=== PATIENT | female | born 1995 ===

== ENCOUNTER 2020-04-14 06:56 | Inpatient (IN) | payer BC ==
[2020-04-14] MEDS ORDERED: Sodium Chloride 0.9% 10 ML Syringe FLUSH PRN (08:00)
[2020-04-14] MEDS ORDERED: Lidocaine 1% 50 ML MDV INJECT PRN (08:00)
[2020-04-14] MEDS ORDERED: Lactated Ringers 1,000 ML IV SCH ×2 (08:00→13:00)
[2020-04-14] MEDS ORDERED: Sodium Chloride 0.9% 10 ML SDV IV PRN (08:00)
[2020-04-14] MEDS ORDERED: Sodium Chloride 0.9% 2.5 ML Syringe FLUSH PRN (08:00)
[2020-04-14] MEDS ORDERED: Citric Acid/Sodium Citrate Solution 30 ML Cup PO ONE (09:42)
[2020-04-14] MEDS ORDERED: Oxytocin/0.9 % Sodium Chloride 30 UNIT/500 ML BAG IV SCH (09:45)
[2020-04-14] MEDS ORDERED: Morphine PF 10 MG/10 ML SDV ONE (10:03)
[2020-04-14] MEDS ORDERED: Octyl 2-Cyanoacrylate 1 Tube ONE (10:04)
[2020-04-14] MEDS ORDERED: Phenylephrine 1% 10 MG/ML SDV ONE (10:09)
[2020-04-14] MEDS ORDERED: Oxytocin 10 Units/1 ML SDV ONE (10:09)
[2020-04-14] MEDS ORDERED: Clindamycin Phosphate in D5W 900 MG in Premix Bag 1 BAG IV ONE ×2 (12:57)
[2020-04-14] MEDS ORDERED: Oxytocin 10 Units/1 ML SDV IM PRN (12:58)
[2020-04-14] MEDS ORDERED: Lanolin 100% Cream 7 GM Tube TOP PRN (12:58)
[2020-04-14] MEDS ORDERED: diphenhydrAMINE 50 MG/ML SDV IVPUSH PRN (12:58)
[2020-04-14] MEDS ORDERED: Acetaminophen/oxyCODONE 325-5 MG Tab PO PRN (12:58)
[2020-04-14] MEDS ORDERED: Tranexamic Acid 1,000 MG in Sodium Chloride 0.9% 100 ML IV PRN (12:58)
[2020-04-14] MEDS ORDERED: Ondansetron 4 MG/2 ML SDV IVPUSH PRN (12:58)
[2020-04-14] MEDS ORDERED: Ibuprofen 800 MG Tab PO PRN (12:58)
[2020-04-14] MEDS ORDERED: Bisacodyl 10 MG Supp RECTAL PRN (12:58)
[2020-04-14] MEDS ORDERED: ePHEDrine 50 MG/ML SDV ONE (13:00)
[2020-04-14] MEDS ORDERED: Sodium Chloride 0.9% 20 ML ONE (13:00)
--- NOTE | 2020-04-14 13:18 | PCM.OPNOTE ---
- General Post-Op/Procedure Note Date of Surgery/Procedure: 04/14/20 Operative Procedure(s): Repeat LTCS. Cystotomy repair Findings: Viable female APGARs 8, 8 weight 8 lb 6 oz. Meconium stained amiotic fluid Significant uterovesicle adhesions to fundus of uterus; during adhesiolysis--cystotomy occurred in anterior dome of bladder. Pre Op Diagnosis: 39 week IUP. Early labor. Previous c section, desires repeat Post-Op Diagnosis: Same Anesthesia Technique: Spinal Primary Surgeon: Marj Quinones Senior Net Programmer: Farideh Lambert Fluid Replacement, Intraop: 1,800 EBL in mLs: 500 Complications: cystotomy -repaired Condition: Stable Free Text/Narrative:: Dictation [id number]
--- NOTE | 2020-04-14 14:30 | PCM.POSTAN ---
POST ANESTHESIA ASSESSMENT - MENTAL STATUS Mental Status: Alert, Oriented - RESPIRATORY Respiratory Status: Respiratory Rate WNL, Airway Patent, O2 Saturation Stable - CARDIOVASCULAR CV Status: Pulse Rate WNL, Blood Pressure Stable - GASTROINTESTINAL GI Status: No Symptoms - PAIN Pain Score: 3 - POST OP HYDRATION Hydration Status: Adequate & Stable - OBSERVATIONS Free Text/Narrative:: no anesthesia issues
[2020-04-14] MEDS: Ketorolac 30 MG/ML SDV IVPUSH SCH (20:15)
[2020-04-14] MEDS: Docusate Sodium 100 MG Cap PO SCH (21:20)
[2020-04-14] MEDS: Nitrofurantoin Monohydrate/Macrocrystalline 100 MG Cap PO SCH (21:20)
[2020-04-14] MEDS: Simethicone 80 MG Tab.Chew PO SCH (21:21)
[2020-04-15] MEDS: Simethicone 80 MG Tab.Chew PO SCH ×4 (00:30→18:04)
[2020-04-15] MEDS: Ketorolac 30 MG/ML SDV IVPUSH SCH ×4 (02:50→20:24)
[2020-04-15 05:43] LABS: BLOOD UREA NITROGEN,BUN 8 mg/dL (7.0-18.0); CARBON DIOXIDE,CO2 26.7 mmol/L (21.0-32.0); CHLORIDE,CL 101 mmol/L (98-107); GLUCOSE RANDOM 94 mg/dL (74-106); POTASSIUM,K 4.1 mmol/L (3.5-5.1); SODIUM,NA 134 mmol/L (136-145)
--- NOTE | 2020-04-15 06:07 | PCM.SURGPN ---
<Farideh Lambert - Last Filed: 04/15/20 06:10> - General Info Date of Service: 04/15/20 Date of Surgery/Procedure: 04/14/20 POD#: 1 Post-Op Diagnosis: H/o previous desiring repeat - delivered Functional Status: Reports: Pain Controlled - Review of Systems General: Reports: No Symptoms HEENT: Reports: No Symptoms Pulmonary: Reports: No Symptoms Cardiovascular: Reports: No Symptoms Gastrointestinal: Reports: No Symptoms Genitourinary: Reports: No Symptoms Musculoskeletal: Reports: No Symptoms Skin: Reports: No Symptoms Neurological: Reports: No Symptoms Psychiatric: Reports: No Symptoms - Patient Data Vitals - Most Recent: Last Vital Signs Temp 97.7 F 04/15/20 05:25 Pulse 88 04/15/20 05:25 Resp 17 04/15/20 05:25 BP 108/60 04/15/20 05:25 Pulse Ox 100 04/15/20 05:25 Weight - Most Recent: 83.007 kg I&O - Last 24 Hours: Intake & Output 04/14/20 04/14/20 04/15/20 14:59 22:59 06:59 Intake Total 1800 700 500 Output Total 980 265 Balance 1800 -280 235 Lab Results Last 24 Hrs: Laboratory Results - last 24 hr 04/14/20 04/14/20 04/14/20 Range/Units 08:32 08:36 09:32 WBC 16.14 H (4.0-11.0) K/uL RBC 4.60 (4.30-5.90) M/uL Hgb 14.1 (12.0-16.0) g/dL Hct 42.2 (36.0-46.0) % MCV 91.7 (80.0-98.0) fL MCH 30.7 (27.0-32.0) pg MCHC 33.4 (31.0-37.0) g/dL RDW Std Deviation 43.7 (28.0-62.0) fl RDW Coeff of [place] 13 (11.0-15.0) % Plt Count 139 L (150-400) K/uL MPV 11.50 (7.40-12.00) fL Nucleated RBC % 0.0 /100WBC Nucleated RBCs # 0 K/uL Sodium (136-145) mmol/L Potassium (3.5-5.1) mmol/L Chloride (98-107) mmol/L Carbon Dioxide (21.0-32.0) mmol/L BUN (7.0-18.0) mg/dL Creatinine (0.6-1.0) mg/dL Est Cr Clr Drug Dosing mL/min Estimated GFR (MDRD) ml/min Glucose (74-106) mg/dL Calcium (8.5-10.1) mg/dL SARS-CoV-2 RNA (ALYSON) POSITIVE H (NEGATIVE) Blood Type B POSITIVE Antibody Screen NEGATIVE 04/15/20 04/15/20 Range/Units 05:11 05:11 WBC 15.66 H (4.0-11.0) K/uL RBC 3.76 L (4.30-5.90) M/uL Hgb 11.5 L (12.0-16.0) g/dL Hct 34.5 L (36.0-46.0) % MCV 91.8 (80.0-98.0) fL MCH 30.6 (27.0-32.0) pg MCHC 33.3 (31.0-37.0) g/dL RDW Std Deviation 44.2 (28.0-62.0) fl RDW Coeff of [place] 13 (11.0-15.0) % Plt Count 140 L (150-400) K/uL MPV 10.80 (7.40-12.00) fL Nucleated RBC % 0.0 /100WBC Nucleated RBCs # 0 K/uL Sodium 134 L (136-145) mmol/L Potassium 4.1 (3.5-5.1) mmol/L Chloride 101 (98-107) mmol/L Carbon Dioxide 26.7 (21.0-32.0) mmol/L BUN 8 (7.0-18.0) mg/dL Creatinine 0.7 (0.6-1.0) mg/dL Est Cr Clr Drug Dosing 119.47 mL/min Estimated GFR (MDRD) > 60.0 ml/min Glucose 94 (74-106) mg/dL Calcium 8.2 L (8.5-10.1) mg/dL SARS-CoV-2 RNA (ALYSON) (NEGATIVE) Blood Type Antibody Screen Med Orders - Current: Current Medications Bisacodyl (Dulcolax) 10 mg RECTAL ONETIME PRN PRN Reason: Constipation Diphenhydramine HCl (Benadryl) 25 mg IVPUSH Q6H PRN PRN Reason: Itching or Nausea Docusate Sodium (Colace) 100 mg PO BID [facility] Last Admin: 04/14/20 21:20 Dose: 100 mg Documented by: Emollient Ointment (Lansinoh Hpa) 0 gm TOP ASDIRECTED PRN PRN Reason: Sore Nipples Lactated Ringer's (Ringers, Lactated) 1,000 mls @ 150 mls/hr IV ASDIRECTED [facility] Last Admin: 04/14/20 08:35 Dose: 150 mls/hr Documented by: Oxytocin/Sodium Chloride (Oxytocin 30 Unit/500 Ml-Ns) 30 unit in 500 mls @ 250 mls/hr IV TITRATE [facility] Lactated Ringer's (Ringers, Lactated) 1,000 mls @ 125 mls/hr IV ASDIRECTED [facility] Tranexamic Acid 1,000 mg/ (Sodium Chloride) 110 mls @ 660 mls/hr IV ONETIME PRN PRN Reason: Bleeding Ibuprofen (Motrin) 800 mg PO Q8H PRN PRN Reason: mild pain or fever Ketorolac Tromethamine (Toradol) 30 mg IVPUSH Q6H [facility] Stop: 04/15/20 13:01 Last Admin: 04/15/20 02:50 Dose: 30 mg Documented by: Lidocaine HCl (Xylocaine 1%) 50 ml INJECT ONETIME PRN PRN Reason: Laceration repair Nitrofurantoin Macrocrystals (Macrobid) 100 mg PO BID [facility] Last Admin: 04/14/20 21:20 Dose: 100 mg Documented by: Ondansetron HCl (Zofran) 4 mg IVPUSH Q4H PRN PRN Reason: Nausea/Vomiting Oxycodone/Acetaminophen (Percocet 325-5 Mg) 1 tab PO Q4H PRN PRN Reason: Pain (moderate 4-6) Oxycodone/Acetaminophen (Percocet 325-5 Mg) 2 tab PO Q4H PRN PRN Reason: Pain (moderate 4-6) Oxytocin (Pitocin) 10 unit IM ASDIRECTED PRN PRN Reason: Excessive Vaginal Bleeding Simethicone (Simethicone) 160 mg PO QID [facility] Last Admin: 04/15/20 05:32 Dose: 160 mg Documented by: Sodium Chloride (Saline Flush) 10 ml FLUSH ASDIRECTED PRN PRN Reason: Keep Vein Open Sodium Chloride (Saline Flush) 2.5 ml FLUSH ASDIRECTED PRN PRN Reason: Keep Vein Open Sodium Chloride (Normal Saline) 10 ml IV ASDIRECTED PRN PRN Reason: IV Use Discontinued Medications Citric Acid/Sodium Citrate (Bicitra Solution) 30 ml PO ONETIME ONE Stop: 04/14/20 09:43 Ephedrine Sulfate (Ephedrine Sulfate) Confirm Administered Dose 50 mg .ROUTE .STK-MED ONE Stop: 04/14/20 13:01 Clindamycin Phosphate 900 mg/ (Premix) 50 mls @ 100 mls/hr IV ASDIRECTED ONE Stop: 04/14/20 13:26 Sodium Chloride (Normal Saline) Confirm Administered Dose 20 mls @ as directed .ROUTE .STK-MED ONE Stop: 04/14/20 13:01 Morphine Sulfate (Duramorph Pf) Confirm Administered Dose 10 mg .ROUTE .STK-MED ONE Stop: 04/14/20 10:04 Octyl Cyanoacrylate (Dermabond Advance) Confirm Administered Dose 1 applic .ROUTE .STK-MED ONE Stop: 04/14/20 10:05 Oxytocin (Pitocin) Confirm Administered Dose 20 unit .ROUTE .STK-MED ONE Stop: 04/14/20 10:10 Phenylephrine HCl (Wilmer-Synephrine) Confirm Administered Dose 10 mg .ROUTE .STK- MED ONE Stop: 04/14/20 10:10 - Exam Wound/Incisions: Healing Well, Dressing Dry and Intact General: Alert, Oriented HEENT: Pupils Equal Neck: Supple Lungs: Clear to Auscultation, Normal Respiratory Effort Cardiovascular: Regular Rate, Regular Rhythm GI/Abdominal Exam: Soft, No Organomegaly, No Distention, No Mass, Other (appropriately tender) Extremities: Normal Inspection, Normal Range of Motion, Non-Tender, No Pedal Edema Skin: Warm, Dry, Intact Neurological: No New Focal Deficit Psy/Mental Status: Alert, Normal Affect, Normal Mood Sepsis Event Note - Evaluation Sepsis Screening Result: No Definite Risk - Focused Exam Vital Signs: Vital Signs Temp Pulse Resp BP BP Pulse Ox 04/15/20 05:25 97.7 F 88 17 108/60 100 04/15/20 02:30 89 18 99 04/15/20 01:30 91 19 97 04/15/20 00:30 91 19 97 04/14/20 23:24 97.7 F 94 17 111/61 96 04/14/20 21:00 95 17 96 04/14/20 20:00 99.1 F 91 18 107/56 L 98 - Problem List & Annotations (1) delivery delivered SNOMED Code(s): 005955042 Code(s): O82 - ENCOUNTER FOR DELIVERY WITHOUT INDICATION Status: Acute Current Visit: Yes Onset Date: ~04/14/20 - Problem List Review Problem List Initiated/Reviewed/Updated: Yes - My Orders Last 24 Hours: Active Orders 24 hr Category Date Time Status Patient Status [ADT] Routine ADT 04/14/20 07:59 Active Patient Status [ADT] Routine ADT 04/14/20 09:42 Active Patient Status [ADT] Routine ADT 04/14/20 12:58 Active Ambulate [RC] PER UNIT ROUTINE Care 04/14/20 12:58 Active Antiembolic Devices [RC] PER UNIT ROUTINE Care 04/14/20 12:59 Active Communication Order [RC] PER UNIT ROUTINE Care 04/14/20 12:58 Active Communication Order [RC] PER UNIT ROUTINE Care 04/14/20 12:58 Active Communication Order [RC] Per Unit Routine Care 04/14/20 12:58 Active Cooling Warming Measures [RC] ASDIRECTED Care 04/14/20 12:59 Active Hilton Catheter Insertion [Insert Urinary Catheter] [OM. Care 04/14/20 13:15 Ordered PC] Q24H May Shower [RC] ASDIRECTED Care 04/14/20 12:58 Active Notify Provider Intake and Out [RC] ASDIRECTED Care 04/14/20 12:58 Active Notify Provider Vital Signs [RC] ASDIRECTED Care 04/14/20 12:58 Active Notify Provider Vital Signs [RC] PRN Care 04/14/20 09:00 Active Procedure Site Prep Instruct [RC] ASDIRECTED Care 04/14/20 12:57 Active RT Incentive Spirometry [RC] Q2HWA Care 04/14/20 12:58 Active Up ad Jo-Ann [RC] ASDIRECTED Care 04/14/20 07:59 Active Up ad Jo-Ann [RC] ASDIRECTED Care 04/14/20 09:42 Active Urinary Catheter Assessment [RC] ASDIRECTED Care 04/14/20 13:05 Active Verify Patient Consent Obtain [RC] ASDIRECTED Care 04/14/20 09:42 Active Vital Signs [RC] PER UNIT ROUTINE Care 04/14/20 07:59 Active Vital Signs [RC] PER UNIT ROUTINE Care 04/14/20 09:42 Active Vital Signs [RC] PER UNIT ROUTINE Care 04/14/20 12:57 Active Vital Signs [RC] PER UNIT ROUTINE Care 04/14/20 12:58 Active Regular Diet [DIET] Diet 04/14/20 Dinner Active RPR (SYPHILIS SERO) W/ RFLX [REF] Routine Lab 04/14/20 08:32 Received Acetaminophen/oxyCODONE [Percocet 325-5 MG] Med 04/14/20 12:58 Active 1 tab PO Q4H PRN Acetaminophen/oxyCODONE [Percocet 325-5 MG] Med 04/14/20 12:58 Active 2 tab PO Q4H PRN Docusate Sodium [Colace] Med 04/14/20 21:00 Active 100 mg PO BID Ibuprofen [Motrin] Med 04/14/20 12:58 Active 800 mg PO Q8H PRN Ketorolac [Toradol] Med 04/14/20 13:00 Active 30 mg IVPUSH Q6H Lactated Ringers [Ringers, Lactated] 1,000 ml Med 04/14/20 08:00 Active IV ASDIRECTED Lactated Ringers [Ringers, Lactated] 1,000 ml Med 04/14/20 13:00 Active IV ASDIRECTED Lanolin [Lansinoh HPA] Med 04/14/20 12:58 Active See Dose Instructions TOP ASDIRECTED PRN Lidocaine 1% [Xylocaine 1%] Med 04/14/20 08:00 Active 50 ml INJECT ONETIME PRN Nitrofurantoin Sanders/Macrocryst [Macrobid] Med 04/14/20 21:00 Active 100 mg PO BID Ondansetron [Zofran] Med 04/14/20 12:58 Active 4 mg IVPUSH Q4H PRN Oxytocin [Pitocin] Med 04/14/20 12:58 Active 10 unit IM ASDIRECTED PRN Oxytocin/0.9 % Sodium Chloride [Oxytocin 30 Unit/500 ML Med 04/14/20 09:45 Active -NS] 30 unit in 500 ml IV TITRATE Simethicone Med 04/14/20 18:00 Active 160 mg PO QID Sodium Chloride 0.9% [Normal Saline] Med 04/14/20 08:00 Active 10 ml IV ASDIRECTED PRN Sodium Chloride 0.9% [Saline Flush] Med 04/14/20 08:00 Active 10 ml FLUSH ASDIRECTED PRN Sodium Chloride 0.9% [Saline Flush] Med 04/14/20 08:00 Active 2.5 ml FLUSH ASDIRECTED PRN Tranexamic Acid [Cyklokapron] 1,000 mg Med 04/14/20 12:58 Active Sodium Chloride 0.9% [Normal Saline] 100 ml IV ONETIME bisacodyL [Dulcolax] Med 04/14/20 12:58 Active 10 mg RECTAL ONETIME PRN diphenhydrAMINE [Benadryl] Med 04/14/20 12:58 Active 25 mg IVPUSH Q6H PRN Abdominal Binder [OM.PC] Routine Ot 04/14/20 12:58 Ordered Assess Lochia [WOMSER] Per Unit Routine Ot 04/14/20 12:58 Ordered Assess Uterine Involution [WOMSER] Per Unit Routine Ot 04/14/20 12:58 Ordered Breast Pump [WOMSER] Per Unit Routine Ot 04/14/20 12:58 Ordered Heat Therapy [OM.PC] Routine Ot 04/14/20 12:58 Ordered Ice Therapy [OM.PC] Routine Ot 04/14/20 12:58 Ordered Peripheral IV Discontinue [OM.PC] Routine Ot 04/14/20 12:58 Ordered Peripheral IV Insertion Adult [OM.PC] Routine Ot 04/14/20 08:01 Ordered Schedule Procedure [COMM] Per Unit Routine Ot 04/14/20 09:42 Ordered Sequential Compression Device [OM.PC] Per Unit Routine Ot 04/14/20 12:58 Ordered Resuscitation Status Routine Resus Stat 04/14/20 07:59 Ordered Medication Orders Bisacodyl (Dulcolax) 10 mg RECTAL ONETIME PRN PRN Reason: Constipation Diphenhydramine HCl (Benadryl) 25 mg IVPUSH Q6H PRN PRN Reason: Itching or Nausea Docusate Sodium (Colace) 100 mg PO BID [facility] Last Admin: 04/14/20 21:20 Dose: 100 mg Documented by: ALESSANDRO Emollient Ointment (Lansinoh Hpa) 0 gm TOP ASDIRECTED PRN PRN Reason: Sore Nipples Lactated Ringer's (Ringers, Lactated) 1,000 mls @ 150 mls/hr IV ASDIRECTED [facility] Last Admin: 04/14/20 08:35 Dose: 150 mls/hr Documented by: LILI Oxytocin/Sodium Chloride (Oxytocin 30 Unit/500 Ml-Ns) 30 unit in 500 mls @ 250 mls/hr IV TITRATE [facility] Lactated Ringer's (Ringers, Lactated) 1,000 mls @ 125 mls/hr IV ASDIRECTED [facility] Tranexamic Acid 1,000 mg/ (Sodium Chloride) 110 mls @ 660 mls/hr IV ONETIME PRN PRN Reason: Bleeding Ibuprofen (Motrin) 800 mg PO Q8H PRN PRN Reason: mild pain or fever Ketorolac Tromethamine (Toradol) 30 mg IVPUSH Q6H [facility] Stop: 04/15/20 13:01 Last Admin: 04/15/20 02:50 Dose: 30 mg Documented by: Admin: 04/14/20 20:15 Dose: 30 mg Documented by: ALESSANDRO Lidocaine HCl (Xylocaine 1%) 50 ml INJECT ONETIME PRN PRN Reason: Laceration repair Nitrofurantoin Macrocrystals (Macrobid) 100 mg PO BID [facility] Last Admin: 04/14/20 21:20 Dose: 100 mg Documented by: ALESSANDRO Ondansetron HCl (Zofran) 4 mg IVPUSH Q4H PRN PRN Reason: Nausea/Vomiting Oxycodone/Acetaminophen (Percocet 325-5 Mg) 1 tab PO Q4H PRN PRN Reason: Pain (moderate 4-6) Oxycodone/Acetaminophen (Percocet 325-5 Mg) 2 tab PO Q4H PRN PRN Reason: Pain (moderate 4-6) Oxytocin (Pitocin) 10 unit IM ASDIRECTED PRN PRN Reason: Excessive Vaginal Bleeding Simethicone (Simethicone) 160 mg PO QID [facility] Last Admin: 02/26/21 05:32 Dose: 160 mg Documented by: Admin: 04/15/20 00:30 Dose: 160 mg Documented by: Admin: 04/14/20 21:21 Dose: Not Given Documented by: ALESSANDRO Sodium Chloride (Saline Flush) 10 ml FLUSH ASDIRECTED PRN PRN Reason: Keep Vein Open Sodium Chloride (Saline Flush) 2.5 ml FLUSH ASDIRECTED PRN PRN Reason: Keep Vein Open Sodium Chloride (Normal Saline) 10 ml IV ASDIRECTED PRN PRN Reason: IV Use - Assessment Assessment (Free Text/Narrative):: 24 year old POD 1 s/p repeat LTCS and cystotomy repair with delivery of viable female apgars 8 & 8. Vitals/labs stable. Urine output normal - currently slightly red-tinged, hilton catheter in place, - Plan Plan (Free Text/Narrative):: 1. Routine pp cares - may shower today, ambulate 2. Cystotomy repair - hilton catheter in place x 7 days, macrobid 100mg BID x 7 days prophylaxis. 3. Anticipate d/c tomorrow. <Marj Quinones - Last Filed: 04/15/20 07:30> - Patient Data Vitals - Most Recent: Last Vital Signs Temp 36.5 C 04/15/20 05:25 Pulse 88 04/15/20 05:25 Resp 17 04/15/20 05:25 BP 108/60 04/15/20 05:25 Pulse Ox 100 04/15/20 05:25 I&O - Last 24 Hours: Intake & Output 04/14/20 04/15/20 04/15/20 22:59 06:59 14:59 Intake Total 700 800 Output Total 980 590 Balance -280 210 Lab Results Last 24 Hrs: Laboratory Results - last 24 hr 04/14/20 04/14/20 04/14/20 Range/Units 08:32 08:36 09:32 WBC 16.14 H (4.0-11.0) K/uL RBC 4.60 (4.30-5.90) M/uL Hgb 14.1 (12.0-16.0) g/dL Hct 42.2 (36.0-46.0) % MCV 91.7 (80.0-98.0) fL MCH 30.7 (27.0-32.0) pg MCHC 33.4 (31.0-37.0) g/dL RDW Std Deviation 43.7 (28.0-62.0) fl RDW Coeff of [place] 13 (11.0-15.0) % Plt Count 139 L (150-400) K/uL MPV 11.50 (7.40-12.00) fL Nucleated RBC % 0.0 /100WBC Nucleated RBCs # 0 K/uL Sodium (136-145) mmol/L Potassium (3.5-5.1) mmol/L Chloride (98-107) mmol/L Carbon Dioxide (21.0-32.0) mmol/L BUN (7.0-18.0) mg/dL Creatinine (0.6-1.0) mg/dL Est Cr Clr Drug Dosing mL/min Estimated GFR (MDRD) ml/min Glucose (74-106) mg/dL Calcium (8.5-10.1) mg/dL SARS-CoV-2 RNA ([place]) POSITIVE H (NEGATIVE) Blood Type B POSITIVE Antibody Screen NEGATIVE 04/15/20 04/15/20 Range/Units 05:11 05:11 WBC 15.66 H (4.0-11.0) K/uL RBC 3.76 L (4.30-5.90) M/uL Hgb 11.5 L (12.0-16.0) g/dL Hct 34.5 L (36.0-46.0) % MCV 91.8 (80.0-98.0) fL MCH 30.6 (27.0-32.0) pg MCHC 33.3 (31.0-37.0) g/dL RDW Std Deviation 44.2 (28.0-62.0) fl RDW Coeff of [place] 13 (11.0-15.0) % Plt Count 140 L (150-400) K/uL MPV 10.80 (7.40-12.00) fL Nucleated RBC % 0.0 /100WBC Nucleated RBCs # 0 K/uL Sodium 134 L (136-145) mmol/L Potassium 4.1 (3.5-5.1) mmol/L Chloride 101 (98-107) mmol/L Carbon Dioxide 26.7 (21.0-32.0) mmol/L BUN 8 (7.0-18.0) mg/dL Creatinine 0.7 (0.6-1.0) mg/dL Est Cr Clr Drug Dosing 119.47 mL/min Estimated GFR (MDRD) > 60.0 ml/min Glucose 94 (74-106) mg/dL Calcium 8.2 L (8.5-10.1) mg/dL SARS-CoV-2 RNA ([place]ON) (NEGATIVE) Blood Type Antibody Screen Med Orders - Current: Current Medications Bisacodyl (Dulcolax) 10 mg RECTAL ONETIME PRN PRN Reason: Constipation Diphenhydramine HCl (Benadryl) 25 mg IVPUSH Q6H PRN PRN Reason: Itching or Nausea Docusate Sodium (Colace) 100 mg PO BID [facility] Last Admin: 04/14/20 21:20 Dose: 100 mg Documented by: Emollient Ointment (Lansinoh Hpa) 0 gm TOP ASDIRECTED PRN PRN Reason: Sore Nipples Lactated Ringer's (Ringers, Lactated) 1,000 mls @ 150 mls/hr IV ASDIRECTED [facility] Last Admin: 04/14/20 08:35 Dose: 150 mls/hr Documented by: Oxytocin/Sodium Chloride (Oxytocin 30 Unit/500 Ml-Ns) 30 unit in 500 mls @ 250 mls/hr IV TITRATE [facility] Lactated Ringer's (Ringers, Lactated) 1,000 mls @ 125 mls/hr IV ASDIRECTED [facility] Tranexamic Acid 1,000 mg/ (Sodium Chloride) 110 mls @ 660 mls/hr IV ONETIME PRN PRN Reason: Bleeding Ibuprofen (Motrin) 800 mg PO Q8H PRN PRN Reason: mild pain or fever Ketorolac Tromethamine (Toradol) 30 mg IVPUSH Q6H [facility] Stop: 04/15/20 13:01 Last Admin: 04/15/20 02:50 Dose: 30 mg Documented by: Lidocaine HCl (Xylocaine 1%) 50 ml INJECT ONETIME PRN PRN Reason: Laceration repair Nitrofurantoin Macrocrystals (Macrobid) 100 mg PO BID [facility] Last Admin: 04/14/20 21:20 Dose: 100 mg Documented by: Ondansetron HCl (Zofran) 4 mg IVPUSH Q4H PRN PRN Reason: Nausea/Vomiting Oxycodone/Acetaminophen (Percocet 325-5 Mg) 1 tab PO Q4H PRN PRN Reason: Pain (moderate 4-6) Oxycodone/Acetaminophen (Percocet 325-5 Mg) 2 tab PO Q4H PRN PRN Reason: Pain (moderate 4-6) Oxytocin (Pitocin) 10 unit IM ASDIRECTED PRN PRN Reason: Excessive Vaginal Bleeding Simethicone (Simethicone) 160 mg PO QID [facility] Last Admin: 04/15/20 05:32 Dose: 160 mg Documented by: Sodium Chloride (Saline Flush) 10 ml FLUSH ASDIRECTED PRN PRN Reason: Keep Vein Open Sodium Chloride (Saline Flush) 2.5 ml FLUSH ASDIRECTED PRN PRN Reason: Keep Vein Open Sodium Chloride (Normal Saline) 10 ml IV ASDIRECTED PRN PRN Reason: IV Use Discontinued Medications Citric Acid/Sodium Citrate (Bicitra Solution) 30 ml PO ONETIME ONE Stop: 04/14/20 09:43 Ephedrine Sulfate (Ephedrine Sulfate) Confirm Administered Dose 50 mg .ROUTE .STK-MED ONE Stop: 04/14/20 13:01 Clindamycin Phosphate 900 mg/ (Premix) 50 mls @ 100 mls/hr IV ASDIRECTED ONE Stop: 04/14/20 13:26 Sodium Chloride (Normal Saline) Confirm Administered Dose 20 mls @ as directed .ROUTE .STK-MED ONE Stop: 04/14/20 13:01 Morphine Sulfate (Duramorph Pf) Confirm Administered Dose 10 mg .ROUTE .STK-MED ONE Stop: 04/14/20 10:04 Octyl Cyanoacrylate (Dermabond Advance) Confirm Administered Dose 1 applic .ROUTE .STK-MED ONE Stop: 04/14/20 10:05 Oxytocin (Pitocin) Confirm Administered Dose 20 unit .ROUTE .STK-MED ONE Stop: 04/14/20 10:10 Phenylephrine HCl (Wilmer-Synephrine) Confirm Administered Dose 10 mg .ROUTE .STK- MED ONE Stop: 04/14/20 10:10 Sepsis Event Note - Focused Exam Vital Signs: Vital Signs Temp Pulse Resp BP BP Pulse Ox 04/15/20 05:25 36.5 C 88 17 108/60 100 04/15/20 02:30 89 18 99 0226/21 01:30 91 19 97 04/15/20 00:30 91 19 97 04/14/20 23:24 36.5 C 94 17 111/61 96 04/14/20 21:00 95 17 96 04/14/20 20:00 37.3 C 91 18 107/56 L 98 - My Orders Last 24 Hours: Active Orders 24 hr Category Date Time Status Patient Status [ADT] Routine ADT 04/14/20 07:59 Active Patient Status [ADT] Routine ADT 04/14/20 09:42 Active Patient Status [ADT] Routine ADT 04/14/20 12:58 Active Ambulate [RC] PER UNIT ROUTINE Care 04/14/20 12:58 Active Antiembolic Devices [RC] PER UNIT ROUTINE Care 04/14/20 12:59 Active Communication Order [RC] PER UNIT ROUTINE Care 04/14/20 12:58 Active Communication Order [RC] PER UNIT ROUTINE Care 04/14/20 12:58 Active Communication Order [RC] Per Unit Routine Care 04/14/20 12:58 Active Cooling Warming Measures [RC] ASDIRECTED Care 04/14/20 12:59 Active Hilton Catheter Insertion [Insert Urinary Catheter] [OM. Care 04/14/20 13:15 Ordered PC] Q24H May Shower [RC] ASDIRECTED Care 04/14/20 12:58 Active Notify Provider Intake and Out [RC] ASDIRECTED Care 04/14/20 12:58 Active Notify Provider Vital Signs [RC] ASDIRECTED Care 04/14/20 12:58 Active Notify Provider Vital Signs [RC] PRN Care 04/14/20 09:00 Active Procedure Site Prep Instruct [RC] ASDIRECTED Care 04/14/20 12:57 Active RT Incentive Spirometry [RC] Q2HWA Care 04/14/20 12:58 Active Up ad Jo-Ann [RC] ASDIRECTED Care 04/14/20 07:59 Active Up ad Jo-Ann [RC] ASDIRECTED Care 04/14/20 09:42 Active Urinary Catheter Assessment [RC] ASDIRECTED Care 04/14/20 13:05 Active Verify Patient Consent Obtain [RC] ASDIRECTED Care 04/14/20 09:42 Active Vital Signs [RC] PER UNIT ROUTINE Care 04/14/20 07:59 Active Vital Signs [RC] PER UNIT ROUTINE Care 04/14/20 09:42 Active Vital Signs [RC] PER UNIT ROUTINE Care 04/14/20 12:57 Active Vital Signs [RC] PER UNIT ROUTINE Care 04/14/20 12:58 Active Regular Diet [DIET] Diet 04/14/20 Dinner Active RPR (SYPHILIS SERO) W/ RFLX [REF] Routine Lab 04/14/20 08:32 Received Acetaminophen/oxyCODONE [Percocet 325-5 MG] Med 04/14/20 12:58 Active 1 tab PO Q4H PRN Acetaminophen/oxyCODONE [Percocet 325-5 MG] Med 04/14/20 12:58 Active 2 tab PO Q4H PRN Docusate Sodium [Colace] Med 04/14/20 21:00 Active 100 mg PO BID Ibuprofen [Motrin] Med 04/14/20 12:58 Active 800 mg PO Q8H PRN Ketorolac [Toradol] Med 04/14/20 13:00 Active 30 mg IVPUSH Q6H Lactated Ringers [Ringers, Lactated] 1,000 ml Med 04/14/20 08:00 Active IV ASDIRECTED Lactated Ringers [Ringers, Lactated] 1,000 ml Med 04/14/20 13:00 Active IV ASDIRECTED Lanolin [Lansinoh HPA] Med 04/14/20 12:58 Active See Dose Instructions TOP ASDIRECTED PRN Lidocaine 1% [Xylocaine 1%] Med 04/14/20 08:00 Active 50 ml INJECT ONETIME PRN Nitrofurantoin Sanders/Macrocryst [Macrobid] Med 04/14/20 21:00 Active 100 mg PO BID Ondansetron [Zofran] Med 04/14/20 12:58 Active 4 mg IVPUSH Q4H PRN Oxytocin [Pitocin] Med 04/14/20 12:58 Active 10 unit IM ASDIRECTED PRN Oxytocin/0.9 % Sodium Chloride [Oxytocin 30 Unit/500 ML Med 04/14/20 09:45 Active -NS] 30 unit in 500 ml IV TITRATE Simethicone Med 04/14/20 18:00 Active 160 mg PO QID Sodium Chloride 0.9% [Normal Saline] Med 04/14/20 08:00 Active 10 ml IV ASDIRECTED PRN Sodium Chloride 0.9% [Saline Flush] Med 04/14/20 08:00 Active 10 ml FLUSH ASDIRECTED PRN Sodium Chloride 0.9% [Saline Flush] Med 04/14/20 08:00 Active 2.5 ml FLUSH ASDIRECTED PRN Tranexamic Acid [Cyklokapron] 1,000 mg Med 04/14/20 12:58 Active Sodium Chloride 0.9% [Normal Saline] 100 ml IV ONETIME bisacodyL [Dulcolax] Med 04/14/20 12:58 Active 10 mg RECTAL ONETIME PRN diphenhydrAMINE [Benadryl] Med 04/14/20 12:58 Active 25 mg IVPUSH Q6H PRN Abdominal Binder [OM.PC] Routine Ot 04/14/20 12:58 Ordered Assess Lochia [WOMSER] Per Unit Routine Ot 04/14/20 12:58 Ordered Assess Uterine Involution [WOMSER] Per Unit Routine Ot 04/14/20 12:58 Ordered Breast Pump [WOMSER] Per Unit Routine Ot 04/14/20 12:58 Ordered Heat Therapy [OM.PC] Routine Ot 04/14/20 12:58 Ordered Ice Therapy [OM.PC] Routine Ot 04/14/20 12:58 Ordered Peripheral IV Discontinue [OM.PC] Routine Ot 04/14/20 12:58 Ordered Peripheral IV Insertion Adult [OM.PC] Routine Ot 04/14/20 08:01 Ordered Schedule Procedure [COMM] Per Unit Routine Ot 04/14/20 09:42 Ordered Sequential Compression Device [OM.PC] Per Unit Routine Ot 04/14/20 12:58 Ordered Resuscitation Status Routine Resus Stat 04/14/20 07:59 Ordered Medication Orders Bisacodyl (Dulcolax) 10 mg RECTAL ONETIME PRN PRN Reason: Constipation Diphenhydramine HCl (Benadryl) 25 mg IVPUSH Q6H PRN PRN Reason: Itching or Nausea Docusate Sodium (Colace) 100 mg PO BID JAMES Last Admin: 04/14/20 21:20 Dose: 100 mg Documented by: ALESSANDRO Emollient Ointment (Lansinoh Hpa) 0 gm TOP ASDIRECTED PRN PRN Reason: Sore Nipples Lactated Ringer's (Ringers, Lactated) 1,000 mls @ 150 mls/hr IV ASDIRECTED [facility] Last Admin: 04/14/20 08:35 Dose: 150 mls/hr Documented by: LILI Oxytocin/Sodium Chloride (Oxytocin 30 Unit/500 Ml-Ns) 30 unit in 500 mls @ 250 mls/hr IV TITRATE [facility] Lactated Ringer's (Ringers, Lactated) 1,000 mls @ 125 mls/hr IV ASDIRECTED [facility] Tranexamic Acid 1,000 mg/ (Sodium Chloride) 110 mls @ 660 mls/hr IV ONETIME PRN PRN Reason: Bleeding Ibuprofen (Motrin) 800 mg PO Q8H PRN PRN Reason: mild pain or fever Ketorolac Tromethamine (Toradol) 30 mg IVPUSH Q6H [facility] Stop: 04/15/20 13:01 Last Admin: 04/15/20 02:50 Dose: 30 mg Documented by: Admin: 04/14/20 20:15 Dose: 30 mg Documented by: ALESSANDRO Lidocaine HCl (Xylocaine 1%) 50 ml INJECT ONETIME PRN PRN Reason: Laceration repair Nitrofurantoin Macrocrystals (Macrobid) 100 mg PO BID [facility] Last Admin: 04/14/20 21:20 Dose: 100 mg Documented by: ALESSANDRO Ondansetron HCl (Zofran) 4 mg IVPUSH Q4H PRN PRN Reason: Nausea/Vomiting Oxycodone/Acetaminophen (Percocet 325-5 Mg) 1 tab PO Q4H PRN PRN Reason: Pain (moderate 4-6) Oxycodone/Acetaminophen (Percocet 325-5 Mg) 2 tab PO Q4H PRN PRN Reason: Pain (moderate 4-6) Oxytocin (Pitocin) 10 unit IM ASDIRECTED PRN PRN Reason: Excessive Vaginal Bleeding Simethicone (Simethicone) 160 mg PO QID [facility] Last Admin: 04/15/20 05:32 Dose: 160 mg Documented by: Admin: 04/15/20 00:30 Dose: 160 mg Documented by: Admin: 04/14/20 21:21 Dose: Not Given Documented by: ALESSANDRO Sodium Chloride (Saline Flush) 10 ml FLUSH ASDIRECTED PRN PRN Reason: Keep Vein Open Sodium Chloride (Saline Flush) 2.5 ml FLUSH ASDIRECTED PRN PRN Reason: Keep Vein Open Sodium Chloride (Normal Saline) 10 ml IV ASDIRECTED PRN PRN Reason: IV Use - Plan Plan (Free Text/Narrative):: Patient seen and examined. Patient remains in isolation since COVID positive. Agree with above. Urine output is adequate, creatinine 0.7. Urine is pink tinged, which is an improvement. Ambulate today. May shower. If continues to do well, plan discharge tomorrow. She will return to clinic next week for hilton removal and will continue antibiotics through that time. Infection, bleeding warnings reviewed. Dr Sibley will cover for the weekend.
[2020-04-15] MEDS: Nitrofurantoin Monohydrate/Macrocrystalline 100 MG Cap PO SCH ×2 (08:30→20:21)
[2020-04-15] MEDS: Docusate Sodium 100 MG Cap PO SCH ×2 (08:30→20:21)
--- NOTE | 2020-04-15 08:48 | PCM48HPAN ---
Post Anesthesia Note - EVALUATION WITHIN 48HRS OF ANESTHETIC Vital Signs in Normal Range: Yes Patient Participated in Evaluation: Yes Respiratory Function Stable: Yes Airway Patent: Yes Cardiovascular Function Stable: Yes Hydration Status Stable: Yes Pain Control Satisfactory: Yes Nausea and Vomiting Control Satisfactory: Yes Mental Status Recovered: Yes Vital Signs: Last Vital Signs Temp 36.5 C 04/15/20 05:25 Pulse 92 04/15/20 06:30 Resp 17 04/15/20 06:30 BP 108/60 04/15/20 05:25 Pulse Ox 98 04/15/20 06:30
[2020-04-16] MEDS: Simethicone 80 MG Tab.Chew PO SCH ×2 (00:41→05:27)
[2020-04-16] MEDS: Acetaminophen/oxyCODONE 325-5 MG Tab PO PRN ×2 (00:41→08:18)
--- NOTE | 2020-04-16 05:25 | PCM.PNPP ---
- General Info Date of Service: 04/16/20 Admission Dx/Problem (Free Text): labor, previous section Subjective Update: Resting comfortably in bed during rounds. Reports pain well controlled. Ambulating without difficulty. Adames catheter in place with pink tinged urine and adequate output. Lochia decreasing. Bottlefeeding baby. - General Info Date of Service: 04/16/20 - Patient Data Vital Signs - Most Recent: Last Vital Signs Temp 98 F 04/16/20 00:30 Pulse 98 04/16/20 00:30 Resp 17 04/16/20 00:30 BP 123/63 04/16/20 00:30 Pulse Ox 96 04/16/20 00:30 Weight - Most Recent: 183 lb I&O - Last 24 Hours: Intake & Output 04/15/20 04/15/20 04/16/20 14:59 22:59 06:59 Output Total 750 1125 Balance -750 -1125 Lab Results - Last 24 Hours: Laboratory Results - last 24 hr 04/14/20 04/15/20 04/15/20 Range/Units 08:32 05:11 05:11 WBC 15.66 H (4.0-11.0) K/uL RBC 3.76 L (4.30-5.90) M/uL Hgb 11.5 L (12.0-16.0) g/dL Hct 34.5 L (36.0-46.0) % MCV 91.8 (80.0-98.0) fL MCH 30.6 (27.0-32.0) pg MCHC 33.3 (31.0-37.0) g/dL RDW Std Deviation 44.2 (28.0-62.0) fl RDW Coeff of [place] 13 (11.0-15.0) % Plt Count 140 L (150-400) K/uL MPV 10.80 (7.40-12.00) fL Nucleated RBC % 0.0 /100WBC Nucleated RBCs # 0 K/uL Sodium 134 L (136-145) mmol/L Potassium 4.1 (3.5-5.1) mmol/L Chloride 101 (98-107) mmol/L Carbon Dioxide 26.7 (21.0-32.0) mmol/L BUN 8 (7.0-18.0) mg/dL Creatinine 0.7 (0.6-1.0) mg/dL Est Cr Clr Drug Dosing 119.47 mL/min Estimated GFR (MDRD) > 60.0 ml/min Glucose 94 (74-106) mg/dL Calcium 8.2 L (8.5-10.1) mg/dL RPR Non-Reac (Non-Reac) Med Orders - Current: Current Medications Bisacodyl (Dulcolax) 10 mg RECTAL ONETIME PRN PRN Reason: Constipation Diphenhydramine HCl (Benadryl) 25 mg IVPUSH Q6H PRN PRN Reason: Itching or Nausea Docusate Sodium (Colace) 100 mg PO BID [facility] Last Admin: 04/15/20 20:21 Dose: 100 mg Documented by: Emollient Ointment (Lansinoh Hpa) 0 gm TOP ASDIRECTED PRN PRN Reason: Sore Nipples Lactated Ringer's (Ringers, Lactated) 1,000 mls @ 150 mls/hr IV ASDIRECTED [facility] Last Admin: 04/14/20 08:35 Dose: 150 mls/hr Documented by: Oxytocin/Sodium Chloride (Oxytocin 30 Unit/500 Ml-Ns) 30 unit in 500 mls @ 250 mls/hr IV TITRATE [facility] Lactated Ringer's (Ringers, Lactated) 1,000 mls @ 125 mls/hr IV ASDIRECTED [facility] Tranexamic Acid 1,000 mg/ (Sodium Chloride) 110 mls @ 660 mls/hr IV ONETIME PRN PRN Reason: Bleeding Ibuprofen (Motrin) 800 mg PO Q8H PRN PRN Reason: mild pain or fever Lidocaine HCl (Xylocaine 1%) 50 ml INJECT ONETIME PRN PRN Reason: Laceration repair Nitrofurantoin Macrocrystals (Macrobid) 100 mg PO BID [facility] Last Admin: 04/15/20 20:21 Dose: 100 mg Documented by: Ondansetron HCl (Zofran) 4 mg IVPUSH Q4H PRN PRN Reason: Nausea/Vomiting Oxycodone/Acetaminophen (Percocet 325-5 Mg) 1 tab PO Q4H PRN PRN Reason: Pain (moderate 4-6) Last Admin: 04/16/20 00:41 Dose: 1 tab Documented by: Oxycodone/Acetaminophen (Percocet 325-5 Mg) 2 tab PO Q4H PRN PRN Reason: Pain (moderate 4-6) Oxytocin (Pitocin) 10 unit IM ASDIRECTED PRN PRN Reason: Excessive Vaginal Bleeding Simethicone (Simethicone) 160 mg PO QID [facility] Last Admin: 04/16/20 00:41 Dose: 160 mg Documented by: Sodium Chloride (Saline Flush) 10 ml FLUSH ASDIRECTED PRN PRN Reason: Keep Vein Open Sodium Chloride (Saline Flush) 2.5 ml FLUSH ASDIRECTED PRN PRN Reason: Keep Vein Open Sodium Chloride (Normal Saline) 10 ml IV ASDIRECTED PRN PRN Reason: IV Use Discontinued Medications Citric Acid/Sodium Citrate (Bicitra Solution) 30 ml PO ONETIME ONE Stop: 04/14/20 09:43 Ephedrine Sulfate (Ephedrine Sulfate) Confirm Administered Dose 50 mg .ROUTE .STK-MED ONE Stop: 04/14/20 13:01 Clindamycin Phosphate 900 mg/ (Premix) 50 mls @ 100 mls/hr IV ASDIRECTED ONE Stop: 04/14/20 13:26 Sodium Chloride (Normal Saline) Confirm Administered Dose 20 mls @ as directed .ROUTE .STK-MED ONE Stop: 04/14/20 13:01 Ketorolac Tromethamine (Toradol) 30 mg IVPUSH Q6H [facility] Stop: 04/15/20 13:01 Last Admin: 04/15/20 02:50 Dose: 30 mg Documented by: Ketorolac Tromethamine (Toradol) 30 mg IVPUSH Q6H [facility] Stop: 04/15/20 21:01 Last Admin: 04/15/20 20:24 Dose: 30 mg Documented by: Morphine Sulfate (Duramorph Pf) Confirm Administered Dose 10 mg .ROUTE .STK-MED ONE Stop: 04/14/20 10:04 Octyl Cyanoacrylate (Dermabond Advance) Confirm Administered Dose 1 applic .ROUTE .STK-MED ONE Stop: 04/14/20 10:05 Oxytocin (Pitocin) Confirm Administered Dose 20 unit .ROUTE .STK-MED ONE Stop: 04/14/20 10:10 Phenylephrine HCl (Wilmer-Synephrine) Confirm Administered Dose 10 mg .ROUTE .STK- MED ONE Stop: 04/14/20 10:10 - Infant Interaction Disposition, : at Bedside Infant Feeding: Bottle Fed Support Person: Significant Other - Recovery Exam Fundal Tone: Firm Fundal Level: 1 Fingerbreadths Below Umbilicus Fundal Placement: Midline Lochia Amount: Scant Lochia Color: Rubra/Red Perineum Description: Intact, Minimal Bruising/Swelling Episiotomy/Laceration: None Bladder Status: Indwelling Catheter in Place Urinary Elimination: Indwelling Catheter - Exam General: Alert Lungs: Normal Respiratory Effort Cardiovascular: Regular Rate GI/Abdominal Exam: Soft, Tender (appropriate) Extremities: Normal Inspection, Normal Range of Motion, Non-Tender, Pedal Edema (trace) Skin: Warm, Dry, Intact Wound/Incisions: Healing Well Neurological: No New Focal Deficit Psy/Mental Status: Normal Mood - Problem List Review Problem List Initiated/Reviewed/Updated: Yes - Assessment Assessment:: 24 year old POD #2 s/p RLTCS and cystotomy repair - Plan Plan:: * Meeting postoperative milestones * Bottle feeding * Rx for pain medication and antibiotics sent to patient's pharmacy. * Pain well controlled Dispo: stable. Anticipate discharge today pending patient's status. Reviewed discharge instructions including to notify clinic with temperature >100.4, intractable nausea/vomiting, severe pain not controlled by PO medications or heavy vaginal bleeding. Reviewed catheter instructions. Patient has postoperative appointment scheduled for in [place] with Dr. Quinones.
[2020-04-16] MEDS: Docusate Sodium 100 MG Cap PO SCH (08:17)
[2020-04-16] MEDS: Nitrofurantoin Monohydrate/Macrocrystalline 100 MG Cap PO SCH (08:17)
== END 2020-04-16 10:43 | disposition home or self-care (01) | DRG 540 ==
LOC: MW.OBCHECK 06:56 → MW.OB 06:57 → MW.OBCHECK 09:42 → MW.OB 10:26
PROVIDERS: ADMIT Obstetrics & Gynecology; ATTEND Obstetrics & Gynecology
PROC: 10D00Z1 Extraction of Products of Conception, Low, Open Approach (ICD-10-PCS; principal; 2020-04-14)
PROC: 0TJB0ZZ Inspection of Bladder, Open Approach (ICD-10-PCS; 2020-04-14)
DX: O34.211 Maternal care for low transverse scar from previous cesarean delivery (principal); Z3A.39 39 weeks gestation of pregnancy; Z37.0 Single live birth; O77.0 Labor and delivery complicated by meconium in amniotic fluid; O98.52 Other viral diseases complicating childbirth; U07.1 COVID-19
CPT/HCPCS: 01961; 36415; 59025; 80048; 85027; 86592; 86850; 86900; 86901; 88307; A9270-GY; J1885; J2270; J2370; J2590; J3490; J7120; U0002

== ENCOUNTER 2023-07-16 05:05 | Inpatient (IN) | payer BC ==
[~2023-07-16 05:05] MED LIST: Albuterol 0.083% 2.5 MG/3 ML Neb Soln NEB PRN; HYDROmorphone 1 MG/ML Syringe IVPUSH PRN; Metoclopramide 10 MG/2 ML SDV IVPUSH PRN; Morphine 2 MG/ML SYRINGE IVPUSH PRN; Naloxone 0.4 MG/ML SDV IVPUSH PRN; Ondansetron 4 MG/2 ML SDV IVPUSH PRN; diphenhydrAMINE 50 MG/ML SDV IVPUSH PRN; droPERidol 5 MG/2 ML SDV IVPUSH PRN; fentaNYL 100 MCG/2 ML SDV IVPUSH PRN; fentaNYL 50 MCG/ML SDV IVPUSH PRN
[2023-07-16] MEDS ORDERED: Clindamycin Phosphate in D5W 900 MG in Premix Bag 50 BAG IV ONE ×2 (05:08→05:30)
[2023-07-16] MEDS ORDERED: Sodium Chloride 0.9% 20 ML SDV IV PRN (05:08)
[2023-07-16] MEDS ORDERED: Citric Acid/Sodium Citrate Solution 30 ML Cup PO ONE (05:08)
[2023-07-16] MEDS ORDERED: Sodium Chloride 0.9% 10 ML Syringe FLUSH PRN ×2 (05:08→09:24)
[2023-07-16] MEDS ORDERED: Sodium Chloride 0.9% 2.5 ML Syringe FLUSH PRN ×2 (05:08→09:24)
[2023-07-16] MEDS ORDERED: Oxytocin/0.9 % Sodium Chloride 30 UNIT/500 ML BAG IV SCH (05:15)
[2023-07-16] MEDS: Lactated Ringers 1,000 ML IV SCH (05:30)
[2023-07-16 06:17] LABS: HEMOGLOBIN 13.3 g/dL (12.0-16.0); MEAN CORPUSCULAR HEMOGLOBIN 30.2 pg (28.0-32.0); MEAN CORPUSCULAR HGB CONC 34.1 g/dL (32.0-36.0); MEAN CORPUSCULAR VOLUME 88.6 fL (83.0-99.0); MEAN PLATELET VOLUME 10.9 fL (9.4-12.3); PLATELET COUNT,PLT 150 K/uL (150-400); WHITE BLOOD CELL COUNT,WBC 9.69 K/uL (3.9-11.3)
[2023-07-16] MEDS ORDERED: Ropivacaine 0.5% 5 MG/ML 30 ML SDV ONE (06:58)
[2023-07-16] MEDS ORDERED: Phenylephrine 1% 10 MG/ML SDV ONE (06:58)
[2023-07-16] MEDS ORDERED: Dexamethasone 4 MG/ML 5 ML MDV ONE (06:58)
[2023-07-16] MEDS ORDERED: Oxytocin 10 Units/1 ML SDV ONE (06:58)
[2023-07-16] MEDS ORDERED: Ondansetron 4 MG/2 ML SDV ONE ×2 (06:58→08:11)
[2023-07-16] MEDS ORDERED: droPERidol 5 MG/2 ML SDV ONE (06:58)
[2023-07-16] MEDS ORDERED: dexmedeTOMIDine HCl 200 MCG/2 ML SDV ONE (06:58)
[2023-07-16] MEDS ORDERED: fentaNYL 100 MCG/2 ML SDV ONE (06:59)
[2023-07-16] MEDS ORDERED: Morphine PF 10 MG/10 ML SDV ONE (06:59)
[2023-07-16] MEDS ORDERED: ceFAZolin 2 GM Vial ONE (07:24)
[2023-07-16] MEDS ORDERED: Tranexamic Acid 1,000 MG/10 ML Vial ONE (07:24)
[2023-07-16] MEDS ORDERED: Calcium Chloride 10% 1 GM/10 ML Syringe ONE (07:24)
[2023-07-16] MEDS ORDERED: ePHEDrine 50 MG/ML SDV ONE (07:40)
[2023-07-16] MEDS ORDERED: Carboprost Tromethamine 250 MCG/1 mL Vial IM PRN (09:24)
[2023-07-16] MEDS ORDERED: oxyCODONE 5 MG Tab PO PRN ×2 (09:24)
[2023-07-16] MEDS ORDERED: Misoprostol 50 MCG (1/2 of 100 MCG) Tab RECTAL PRN (09:24)
[2023-07-16] MEDS ORDERED: Methylergonovine 0.2 MG/1 ML Amp IM ONE (09:24)
[2023-07-16] MEDS ORDERED: Lanolin 100% Cream 7 GM Tube TOP PRN (09:24)
[2023-07-16] MEDS: Phenylephrine HCl In 0.9% NaCl 1 MG/10 ML Syringe ONE (09:50)
[2023-07-16] MEDS ORDERED: ePHEDrine 50 MG/ML SDV IVPUSH PRN (10:22)
[2023-07-16] MEDS: Acetaminophen 1,000 MG in Premix Bag 1 BAG IV SCH (10:30)
[2023-07-16] MEDS: ePHEDrine 50 MG/ML SDV IM ONE (13:19)
[2023-07-16] MEDS: Ketorolac 30 MG/ML SDV IVPUSH SCH (16:06)
[2023-07-16] MEDS: Docusate Sodium 100 MG Cap PO SCH (20:53)
[2023-07-16] MEDS: Escitalopram 10 MG Tab PO SCH (20:54)
[2023-07-17 06:38] LABS: HEMATOCRIT 30.7 % (37.0-47.0); HEMOGLOBIN 10.6 g/dL (12.0-16.0); MEAN CORPUSCULAR HEMOGLOBIN 30.8 pg (28.0-32.0); MEAN CORPUSCULAR HGB CONC 34.5 g/dL (32.0-36.0); MEAN CORPUSCULAR VOLUME 89.2 fL (83.0-99.0); MEAN PLATELET VOLUME 10.9 fL (9.4-12.3); PLATELET COUNT,PLT 143 K/uL (150-400); RED BLOOD CELL COUNT 3.44 M/uL (4.10-5.30); WHITE BLOOD CELL COUNT,WBC 17.62 K/uL (3.9-11.3)
[2023-07-17 07:38] LABS: BAND ABSOLUTE MAN 0.53; BAND PERCENT MAN 3 %; EOSINOPHILS ABSOLUTE MAN 0.18 K/uL (0.00-0.45); EOSINOPHILS PERCENT MAN 1 % (0-6); LYMPHOCYTES ABSOLUTE MAN 1.94 K/uL (1.00-4.80); LYMPHOCYTES PERCENT MAN 11 % (24-44); MONOCYTES ABSOLUTE MAN 1.41 K/uL (0.00-0.80); MONOCYTES PERCENT MAN 8 % (0-8); SEG NEUTROPHILS ABSOLUTE MAN 13.39 K/uL (1.80-7.70); SEG NEUTROPHILS PERCENT MAN 76 % (41-71)
[2023-07-17 07:39] LABS: BASOPHILS ABSOLUTE MAN 0.18 K/uL (0.00-0.20); BASOPHILS PERCENT MAN 1 % (0-1)
[2023-07-17] MEDS: Ibuprofen 800 MG Tab PO PRN (10:04)
[2023-07-17] MEDS: Acetaminophen/oxyCODONE 325-5 MG Tab PO PRN (11:39)
[2023-07-17] MEDS: Escitalopram 10 MG Tab PO SCH (20:53)
[2023-07-18] MEDS: Acetaminophen 500 MG Tab PO PRN (11:37)
== END 2023-07-18 11:30 | disposition home or self-care (01) | DRG 540 ==
LOC: MW.OB 05:05
PROVIDERS: ADMIT Obstetrics & Gynecology; ATTEND Obstetrics & Gynecology
PROC: 10D00Z1 Extraction of Products of Conception, Low, Open Approach (ICD-10-PCS; principal; 2023-07-16 08:00)
DX: O34.211 Maternal care for low transverse scar from previous cesarean delivery (principal); Z37.0 Single live birth; Z3A.39 39 weeks gestation of pregnancy
CPT/HCPCS: 01961; 36415; 59025; 64488; 85025; 85027; 86592; 86850; 86900; 86901; 86920; A9270-GY; J0131; J0690; J1100; J1790; J1885; J2274; J2371; J2405; J2590; J2795; J3010; J3490; J7120